=== PATIENT | male | born 1995 | race Caucasian/White ===

== ENCOUNTER 2018-01-12 20:26 | Emergency (ER) | payer MEDICAID, OTHER ==
[2018-01-12] MEDS: LIDOCAINE 1% (MDV) 20 ML INJ SC (21:42)
== END 2018-01-13 00:12 | disposition home or self-care (01) ==
LOC: FTE 01-13 00:12
DX: S91.312A Laceration without foreign body, left foot, initial encounter (principal); F17.210 Nicotine dependence, cigarettes, uncomplicated; W25.XXXA Contact with sharp glass, initial encounter; Y92.9 Unspecified place or not applicable
CPT/HCPCS: 12002; 73630-LT; 99283-25